=== PATIENT | male | born 1950 | race Asian ===

== ENCOUNTER 2017-12-02 10:48 | Inpatient (IN) | payer OTHER ==
[~2017-12-02] VITALS: Ht 172.7 cm; Wt 62.6 kg
[2017-12-02 10:48] VITALS: BP_SYST 143
[2017-12-02] MEDS ORDERED: NACL 0.9% 1,000 ML IV ONE (10:56)
[2017-12-02] MEDS ORDERED: ASPIRIN 81 MG TAB.CHEW PO ONE (11:00)
[2017-12-02] MEDS ORDERED: NS 1000 ML BAG IV ONE (11:00)
[2017-12-02 11:13] LABS: BILIRUBIN,URINE NEGATIVE (NEGATIVE); CLARITY/URINE CLEAR (CLEAR); COLOR,URINE YELLOW (YELLOW); GLUCOSE,URINE NEGATIVE (NEGATIVE); KETONES,URINE NEGATIVE (NEGATIVE); LEUKOCYTE ESTERASE ,URINE NEGATIVE (NEGATIVE); NITRITE, URINE NEGATIVE (NEGATIVE); PROTEIN URINE TRACE (NEGATIVE); UROBILINOGEN,URINE 0.2 (0.2-1.0)
[2017-12-02 11:46] LABS: BLOOD, URINE TRACE (NEGATIVE)
[2017-12-02 11:50] LABS: BASOPHILS % (AUTO) 0.6 % (0.0-2.0); EOSINOPHILS # (AUTO) 0.2 K/uL (0.0-0.4); EOSINOPHILS % (AUTO) 2.4 % (0.0-4.0); HEMATOCRIT 35.2 % (36-54); HEMOGLOBIN 10.8 g/dL (14.0-18.0); LYMPHOCYTES # (AUTO) 0.9 K/uL (1.0-5.5); LYMPHOCYTES % (AUTO) 13.5 % (20.5-51.5); MEAN CORPUSCULAR HEMOGLOBIN 21 pg (27-31); MEAN CORPUSCULAR HGB CONC 31 % (32-36); MONOCYTES # (AUTO) 0.6 K/uL (0.0-1.0); MONOCYTES % (AUTO) 8.2 % (1.7-9.3); NEUTROPHILS # (AUTO) 5.2 K/uL (1.8-7.7); NEUTROPHILS % (AUTO) 75.3 % (40.0-70.0); PLATELET COUNT (AUTO) 193 K/uL (130-430); RED BLOOD CELL COUNT(AUTO) 5.19 MIL/uL (4.2-6.2); RED CELL DISTRIBUTION WIDTH 18.3 % (9.0-15.0); WHITE BLOOD COUNT (AUTO) 6.9 K/uL (4.8-10.8)
[2017-12-02 11:57] LABS: BARBITURATE, URINE NEGATIVE (NEG <=200); BENZODIAZEPINE, URINE NEGATIVE (NEG <=150); CANNABINOID, URINE NEGATIVE (NEG <=50); COCAINE, URINE NEGATIVE (NEG <=150); METHAMPHETAMINES SCREEN,URINE NEGATIVE (NEG <=500); OPIATE, URINE NEGATIVE (NEG <=100); PHENCYCLIDINE SCREEN,URINE NEGATIVE (NEG <=25); UR TRICYCLIC ANTIDEPRESSANTS NEGATIVE (NEG <=300); URINE AMPHETAMINE NEGATIVE (NEG <=500); URINE METHADONE NEGATIVE (NEG <=200); URINE OXYCODONE SCREEN NEGATIVE (NEG <=100); URINE PROPOXYPHENE SCREEN NEGATIVE (NEG <=300)
[2017-12-02 12:17] LABS: CALCIUM 8.6 mg/dL (8.4-11.0); CREATININE 1.33 mg/dL (0.55-1.30); POTASSIUM 3.7 mmol/L (3.5-5.1)
[2017-12-02 12:18] LABS: PROTHROMBIN TIME 10.6 SECS (9.5-12.5)
[2017-12-02 12:29] LABS: MEAN CORPUSCULAR VOLUME 68 fL (79.0-98.0)
[2017-12-02 12:30] LABS: ALBUMIN 2.9 g/dL (3.4-4.8); TOTAL BILIRUBIN 0.5 mg/dL (0.0-1.0)
[2017-12-02 13:18] LABS: BACTERIA,URINE FEW /HPF (None Seen); RBC,URINE 0-3 /HPF (0-3); WBC,URINE NONE SEEN /HPF (0-3)
[2017-12-02 13:19] LABS: MUCUS,URINE None Seen /LPF (None Seen)
[2017-12-02 15:10] VITALS: BP_SYST 152
[2017-12-02] MEDS ORDERED: ACETAMINOPHEN 325 MG TABLET PO PRN (16:45)
[2017-12-02] MEDS ORDERED: cloNIDine HCL 0.1 MG TABLET PO PRN (16:45)
[2017-12-02 19:15] LABS: TOTAL IRON BIND. CAPACITY 266 ug/dL (250-450)
[2017-12-02 20:11] VITALS: BP_SYST 137
[2017-12-02] MEDS: CARVEDILOL 3.125 MG TABLET (COREG) PO SCH (21:45)
[2017-12-02 23:35] VITALS: BP_SYST 121
[2017-12-03 07:23] LABS: BASOPHILS % (AUTO) 0.6 % (0.0-2.0); EOSINOPHILS # (AUTO) 0.2 K/uL (0.0-0.4); EOSINOPHILS % (AUTO) 4.1 % (0.0-4.0); HEMATOCRIT 34.9 % (36-54); HEMOGLOBIN 10.9 g/dL (14.0-18.0); LYMPHOCYTES # (AUTO) 1.3 K/uL (1.0-5.5); LYMPHOCYTES % (AUTO) 22.7 % (20.5-51.5); MEAN CORPUSCULAR HEMOGLOBIN 22 pg (27-31); MEAN CORPUSCULAR HGB CONC 31 % (32-36); MEAN CORPUSCULAR VOLUME 69 fL (79.0-98.0); MONOCYTES # (AUTO) 0.6 K/uL (0.0-1.0); MONOCYTES % (AUTO) 10.4 % (1.7-9.3); NEUTROPHILS # (AUTO) 3.5 K/uL (1.8-7.7); NEUTROPHILS % (AUTO) 62.2 % (40.0-70.0); PLATELET COUNT (AUTO) 180 K/uL (130-430); RED BLOOD CELL COUNT(AUTO) 5.08 MIL/uL (4.2-6.2); RED CELL DISTRIBUTION WIDTH 18.5 % (9.0-15.0); WHITE BLOOD COUNT (AUTO) 5.6 K/uL (4.8-10.8)
[2017-12-03 07:36] LABS: ALBUMIN 2.9 g/dL (3.4-4.8); CALCIUM 8.6 mg/dL (8.4-11.0); CREATININE 1.44 mg/dL (0.55-1.30); POTASSIUM 3.9 mmol/L (3.5-5.1); TOTAL BILIRUBIN 0.7 mg/dL (0.0-1.0)
[2017-12-03 07:46] VITALS: BP_SYST 145
[2017-12-03] MEDS: ASPIRIN 81 MG TABLET(ECOTRIN) PO SCH (08:39)
[2017-12-03] MEDS: CARVEDILOL 3.125 MG TABLET (COREG) PO SCH ×2 (08:39→21:44)
[2017-12-03] MEDS: FAMOTIDINE 20 MG TABLET PO SCH (08:39)
[2017-12-03 11:47] VITALS: BP_SYST 121
[2017-12-03 12:00] VITALS: BP_SYST 121
[2017-12-03] MEDS ORDERED: LOSARTAN POTASSIUM 25 MG TABLET PO SCH (12:30)
[2017-12-03] MEDS ORDERED: FUROSEMIDE 20 MG TABLET PO ONE (12:30)
[2017-12-03] MEDS: FLUOCINONIDE 0.05% TP SCH ×2 (15:00→21:00)
[2017-12-03] MEDS ORDERED: LORATADINE 10 MG TABLET PO ONE (15:00)
[2017-12-03 16:00] VITALS: BP_SYST 124
[2017-12-03] MEDS: TEARS ARTIFICIAL 15 ML DROPS OP SCH ×3 (16:00→21:45)
[2017-12-03] MEDS: HYDROCORTISONE 1% 28.35 GM TOPICAL OINT. TP SCH ×2 (16:00→21:46)
[2017-12-03] MEDS: CEPHALEXIN 500 MG CAPSULE PO SCH (17:45)
[2017-12-03 20:30] VITALS: BP_SYST 135
[2017-12-03] MEDS: ERYTHROMYCIN BASE 0.5% EYE OINT...G. OP SCH (21:45)
[2017-12-04] MEDS: CEPHALEXIN 500 MG CAPSULE PO SCH ×5 (01:04→23:52)
[2017-12-04 01:31] VITALS: BP_SYST 127
[2017-12-04 07:18] LABS: BASOPHILS % (AUTO) 0.6 % (0.0-2.0); EOSINOPHILS # (AUTO) 0.3 K/uL (0.0-0.4); EOSINOPHILS % (AUTO) 4.4 % (0.0-4.0); HEMATOCRIT 37.7 % (36-54); HEMOGLOBIN 11.6 g/dL (14.0-18.0); LYMPHOCYTES # (AUTO) 1.5 K/uL (1.0-5.5); LYMPHOCYTES % (AUTO) 19.6 % (20.5-51.5); MEAN CORPUSCULAR HEMOGLOBIN 21 pg (27-31); MEAN CORPUSCULAR HGB CONC 31 % (32-36); MEAN CORPUSCULAR VOLUME 69 fL (79.0-98.0); MONOCYTES # (AUTO) 0.8 K/uL (0.0-1.0); MONOCYTES % (AUTO) 10.1 % (1.7-9.3); NEUTROPHILS # (AUTO) 4.9 K/uL (1.8-7.7); NEUTROPHILS % (AUTO) 65.3 % (40.0-70.0); PLATELET COUNT (AUTO) 207 K/uL (130-430); RED BLOOD CELL COUNT(AUTO) 5.44 MIL/uL (4.2-6.2); RED CELL DISTRIBUTION WIDTH 19.2 % (9.0-15.0); WHITE BLOOD COUNT (AUTO) 7.5 K/uL (4.8-10.8)
[2017-12-04 07:54] LABS: ALBUMIN 2.8 g/dL (3.4-4.8); CALCIUM 8.6 mg/dL (8.4-11.0); CREATININE 1.61 mg/dL (0.55-1.30); POTASSIUM 4.1 mmol/L (3.5-5.1); THYROID STIMULATING HORMONE 3.32 uIu/mL (0.34-4.82); TOTAL BILIRUBIN 0.7 mg/dL (0.0-1.0)
[2017-12-04 08:00] VITALS: BP_SYST 151
[2017-12-04] MEDS ORDERED: VANCOMYCIN HCL 1 GM/NS PREMIX 250 ML IV ONE (08:00)
[2017-12-04] MEDS: CARVEDILOL 3.125 MG TABLET (COREG) PO SCH (08:41)
[2017-12-04] MEDS: LOSARTAN POTASSIUM 25 MG TABLET PO SCH (08:42)
[2017-12-04] MEDS: ASPIRIN 81 MG TABLET(ECOTRIN) PO SCH (08:42)
[2017-12-04] MEDS: LORATADINE 10 MG TABLET PO SCH (08:42)
[2017-12-04] MEDS: FAMOTIDINE 20 MG TABLET PO SCH (08:42)
[2017-12-04] MEDS: HYDROCORTISONE 1% 28.35 GM TOPICAL OINT. TP SCH ×2 (08:43→21:32)
[2017-12-04] MEDS: ERYTHROMYCIN BASE 0.5% EYE OINT...G. OP SCH ×2 (08:43→21:31)
[2017-12-04] MEDS: TEARS ARTIFICIAL 15 ML DROPS OP SCH ×4 (08:43→21:31)
[2017-12-04] MEDS: FUROSEMIDE 20 MG TABLET PO SCH (08:43)
[2017-12-04] MEDS: FLUOCINONIDE 0.05% TP SCH ×2 (09:00→21:00)
[2017-12-04] MEDS ORDERED: LORazepam 2 MG/ML VIAL IVP PRN (11:30)
[2017-12-04] MEDS ORDERED: PERMETHRIN 60 GM TOPICAL CREAM (ELIMITE) TP ONE (11:45)
[2017-12-04 12:36] VITALS: BP_SYST 117
[2017-12-04] MEDS ORDERED: IVERMECTIN 3 MG TABLET PO ONE (14:30)
[2017-12-04 17:03] VITALS: BP_SYST 124
[2017-12-04 20:12] VITALS: BP_SYST 126
[2017-12-04] MEDS: CARVEDILOL 6.25 MG TABLET (COREG) PO SCH (21:30)
[2017-12-05] VITALS: BP_SYST 121
[2017-12-05] MEDS: VANCOMYCIN HCL 1,000 MG in NS 250 ML IV SCH (05:39)
[2017-12-05] MEDS: CEPHALEXIN 500 MG CAPSULE PO SCH ×3 (05:39→17:25)
[2017-12-05 06:49] LABS: BASOPHILS % (AUTO) 0.5 % (0.0-2.0); EOSINOPHILS # (AUTO) 0.4 K/uL (0.0-0.4); EOSINOPHILS % (AUTO) 5.6 % (0.0-4.0); HEMATOCRIT 36.8 % (36-54); HEMOGLOBIN 11.6 g/dL (14.0-18.0); LYMPHOCYTES # (AUTO) 1.1 K/uL (1.0-5.5); LYMPHOCYTES % (AUTO) 17.8 % (20.5-51.5); MEAN CORPUSCULAR HEMOGLOBIN 22 pg (27-31); MEAN CORPUSCULAR HGB CONC 32 % (32-36); MEAN CORPUSCULAR VOLUME 69 fL (79.0-98.0); MONOCYTES # (AUTO) 0.6 K/uL (0.0-1.0); MONOCYTES % (AUTO) 9.8 % (1.7-9.3); NEUTROPHILS # (AUTO) 4.2 K/uL (1.8-7.7); NEUTROPHILS % (AUTO) 66.3 % (40.0-70.0); RED BLOOD CELL COUNT(AUTO) 5.36 MIL/uL (4.2-6.2); RED CELL DISTRIBUTION WIDTH 18.7 % (9.0-15.0); WHITE BLOOD COUNT (AUTO) 6.3 K/uL (4.8-10.8)
[2017-12-05 07:11] LABS: CALCIUM 8.6 mg/dL (8.4-11.0); POTASSIUM 3.9 mmol/L (3.5-5.1)
[2017-12-05 07:12] LABS: CREATININE 1.49 mg/dL (0.55-1.30)
[2017-12-05 08:18] LABS: FOLATE (FOLIC ACID) 17.7 ng/mL (>3.0)
[2017-12-05] MEDS: FLUOCINONIDE 0.05% TP SCH (09:00)
[2017-12-05] MEDS: ASPIRIN 81 MG TABLET(ECOTRIN) PO SCH (09:35)
[2017-12-05] MEDS: FAMOTIDINE 20 MG TABLET PO SCH (09:35)
[2017-12-05] MEDS: FUROSEMIDE 20 MG TABLET PO SCH (09:35)
[2017-12-05] MEDS: CARVEDILOL 6.25 MG TABLET (COREG) PO SCH ×2 (09:36→20:52)
[2017-12-05] MEDS: LORATADINE 10 MG TABLET PO SCH (09:36)
[2017-12-05] MEDS: LOSARTAN POTASSIUM 25 MG TABLET PO SCH (09:36)
[2017-12-05] MEDS: ERYTHROMYCIN BASE 0.5% EYE OINT...G. OP SCH ×2 (09:41→20:52)
[2017-12-05] MEDS: TEARS ARTIFICIAL 15 ML DROPS OP SCH ×4 (09:41→20:52)
[2017-12-05] MEDS: HYDROCORTISONE 1% 28.35 GM TOPICAL OINT. TP SCH ×2 (09:41→20:52)
[2017-12-05 09:44] LABS: PLATELET COUNT (AUTO) 185 K/uL (130-430)
[2017-12-05 10:01] VITALS: BP_SYST 100
[2017-12-05 12:00] VITALS: BP_SYST 128
[2017-12-05 16:03] VITALS: BP_SYST 123
[2017-12-05] MEDS: FLUOCINONIDE 0.05% TOPICAL CREAM 15 GM (LIDEX) TP SCH (20:52)
[2017-12-06 01:32] VITALS: BP_SYST 135
[2017-12-06] MEDS: CEPHALEXIN 500 MG CAPSULE PO SCH ×4 (05:57→17:23)
[2017-12-06] MEDS: VANCOMYCIN HCL 1,000 MG in NS 250 ML IV SCH (05:57)
[2017-12-06 08:00] VITALS: BP_SYST 155
[2017-12-06] MEDS: ERYTHROMYCIN BASE 0.5% EYE OINT...G. OP SCH ×2 (09:00→21:20)
[2017-12-06] MEDS: HYDROCORTISONE 1% 28.35 GM TOPICAL OINT. TP SCH ×2 (09:00→21:23)
[2017-12-06] MEDS: TEARS ARTIFICIAL 15 ML DROPS OP SCH ×4 (09:00→21:20)
[2017-12-06] MEDS: FLUOCINONIDE 0.05% TOPICAL CREAM 15 GM (LIDEX) TP SCH ×2 (09:00→21:24)
[2017-12-06] MEDS: ASPIRIN 81 MG TABLET(ECOTRIN) PO SCH (09:33)
[2017-12-06] MEDS: FAMOTIDINE 20 MG TABLET PO SCH (09:33)
[2017-12-06] MEDS: CARVEDILOL 6.25 MG TABLET (COREG) PO SCH ×2 (09:33→21:15)
[2017-12-06] MEDS: FUROSEMIDE 20 MG TABLET PO SCH (09:33)
[2017-12-06] MEDS: LORATADINE 10 MG TABLET PO SCH (09:34)
[2017-12-06] MEDS: LOSARTAN POTASSIUM 25 MG TABLET PO SCH (09:34)
[2017-12-06 12:55] VITALS: BP_SYST 115
[2017-12-06 20:50] VITALS: BP_SYST 108
[2017-12-07] MEDS: CEPHALEXIN 500 MG CAPSULE PO SCH ×2 (00:18→05:22)
[2017-12-07 02:56] VITALS: BP_SYST 118
[2017-12-07] MEDS: VANCOMYCIN HCL 1,000 MG in NS 250 ML IV SCH (05:23)
[2017-12-07 08:00] VITALS: BP_SYST 112
[2017-12-07] MEDS: FLUOCINONIDE 0.05% TOPICAL CREAM 15 GM (LIDEX) TP SCH ×2 (09:00→21:00)
[2017-12-07] MEDS: TEARS ARTIFICIAL 15 ML DROPS OP SCH ×4 (09:00→21:00)
[2017-12-07] MEDS: ERYTHROMYCIN BASE 0.5% EYE OINT...G. OP SCH ×2 (09:00→21:00)
[2017-12-07] MEDS: HYDROCORTISONE 1% 28.35 GM TOPICAL OINT. TP SCH ×2 (09:00→21:00)
[2017-12-07] MEDS: FAMOTIDINE 20 MG TABLET PO SCH (09:17)
[2017-12-07] MEDS: LOSARTAN POTASSIUM 25 MG TABLET PO SCH (09:17)
[2017-12-07] MEDS: ASPIRIN 81 MG TABLET(ECOTRIN) PO SCH (09:17)
[2017-12-07] MEDS: FUROSEMIDE 20 MG TABLET PO SCH (09:17)
[2017-12-07] MEDS: LORATADINE 10 MG TABLET PO SCH (09:17)
[2017-12-07] MEDS: CARVEDILOL 6.25 MG TABLET (COREG) PO SCH ×2 (09:24→21:00)
[2017-12-07] MEDS ORDERED: FLUCONAZOLE 100 MG TABLET (DIFLUCAN) PO ONE (10:15)
[2017-12-07 12:00] VITALS: BP_SYST 117
[2017-12-07 20:00] VITALS: BP_SYST 95
[2017-12-08] VITALS: BP_SYST 100
[2017-12-08] MEDS: FLUCONAZOLE 100 MG TABLET (DIFLUCAN) PO SCH (08:51)
[2017-12-08] MEDS: ASPIRIN 81 MG TABLET(ECOTRIN) PO SCH (08:51)
[2017-12-08] MEDS: FAMOTIDINE 20 MG TABLET PO SCH (08:51)
[2017-12-08] MEDS: LORATADINE 10 MG TABLET PO SCH (08:51)
[2017-12-08] MEDS: CARVEDILOL 6.25 MG TABLET (COREG) PO SCH ×2 (09:00→20:15)
[2017-12-08] MEDS: FLUOCINONIDE 0.05% TOPICAL CREAM 15 GM (LIDEX) TP SCH ×2 (09:00→20:15)
[2017-12-08] MEDS: TEARS ARTIFICIAL 15 ML DROPS OP SCH ×4 (09:00→20:12)
[2017-12-08] MEDS: HYDROCORTISONE 1% 28.35 GM TOPICAL OINT. TP SCH ×2 (09:00→20:16)
[2017-12-08] MEDS: LOSARTAN POTASSIUM 25 MG TABLET PO SCH (09:00)
[2017-12-08] MEDS: FUROSEMIDE 20 MG TABLET PO SCH (09:00)
[2017-12-08] MEDS: ERYTHROMYCIN BASE 0.5% EYE OINT...G. OP SCH ×2 (09:00→20:14)
[2017-12-08 12:08] VITALS: BP_SYST 98
[2017-12-08 16:25] VITALS: BP_SYST 105
[2017-12-08 20:00] VITALS: BP_SYST 123
[2017-12-09 07:44] VITALS: BP_SYST 112
[2017-12-09] MEDS: FAMOTIDINE 20 MG TABLET PO SCH (08:40)
[2017-12-09] MEDS: ASPIRIN 81 MG TABLET(ECOTRIN) PO SCH (08:40)
[2017-12-09] MEDS: LOSARTAN POTASSIUM 25 MG TABLET PO SCH (08:41)
[2017-12-09] MEDS: LORATADINE 10 MG TABLET PO SCH (08:41)
[2017-12-09] MEDS: FUROSEMIDE 20 MG TABLET PO SCH (08:41)
[2017-12-09] MEDS: CARVEDILOL 6.25 MG TABLET (COREG) PO SCH ×2 (08:42→21:00)
[2017-12-09] MEDS: TEARS ARTIFICIAL 15 ML DROPS OP SCH ×4 (08:42→21:33)
[2017-12-09] MEDS: FLUOCINONIDE 0.05% TOPICAL CREAM 15 GM (LIDEX) TP SCH ×2 (08:43→21:34)
[2017-12-09] MEDS: ERYTHROMYCIN BASE 0.5% EYE OINT...G. OP SCH ×2 (08:43→21:35)
[2017-12-09] MEDS: HYDROCORTISONE 1% 28.35 GM TOPICAL OINT. TP SCH ×2 (08:44→21:34)
[2017-12-09] MEDS: FLUCONAZOLE 100 MG TABLET (DIFLUCAN) PO SCH (08:50)
[2017-12-09 12:31] VITALS: BP_SYST 96
[2017-12-09 15:41] VITALS: BP_SYST 100
[2017-12-09 20:00] VITALS: BP_SYST 105
[2017-12-09] MEDS: risperiDONE 1 MG TABLET (RisperDAL) PO SCH (21:35)
[2017-12-10] VITALS: BP_SYST 83
[2017-12-10 07:50] VITALS: BP_SYST 108
[2017-12-10] MEDS: LOSARTAN POTASSIUM 25 MG TABLET PO SCH (09:00)
[2017-12-10] MEDS: CARVEDILOL 6.25 MG TABLET (COREG) PO SCH (09:00)
[2017-12-10] MEDS: ERYTHROMYCIN BASE 0.5% EYE OINT...G. OP SCH ×2 (09:03→21:00)
[2017-12-10] MEDS: TEARS ARTIFICIAL 15 ML DROPS OP SCH ×4 (09:03→21:00)
[2017-12-10] MEDS: FAMOTIDINE 20 MG TABLET PO SCH (09:05)
[2017-12-10] MEDS: risperiDONE 1 MG TABLET (RisperDAL) PO SCH ×2 (09:05→21:00)
[2017-12-10] MEDS: ASPIRIN 81 MG TABLET(ECOTRIN) PO SCH (09:05)
[2017-12-10] MEDS: FLUCONAZOLE 100 MG TABLET (DIFLUCAN) PO SCH (09:06)
[2017-12-10] MEDS: FUROSEMIDE 20 MG TABLET PO SCH (09:06)
[2017-12-10] MEDS: LORATADINE 10 MG TABLET PO SCH (09:06)
[2017-12-10] MEDS: FLUOCINONIDE 0.05% TOPICAL CREAM 15 GM (LIDEX) TP SCH ×2 (09:09→21:00)
[2017-12-10] MEDS: HYDROCORTISONE 1% 28.35 GM TOPICAL OINT. TP SCH ×2 (09:09→21:00)
[2017-12-10 13:00] VITALS: BP_SYST 93
[2017-12-10 16:08] VITALS: BP_SYST 94
[2017-12-10 20:00] VITALS: BP_SYST 92
[2017-12-10] MEDS: CARVEDILOL 3.125 MG TABLET (COREG) PO SCH (21:00)
[2017-12-11] VITALS: BP_SYST 114
[2017-12-11 07:55] LABS: CALCIUM 9.1 mg/dL (8.4-11.0); CREATININE 1.78 mg/dL (0.55-1.30); POTASSIUM 4.3 mmol/L (3.5-5.1)
[2017-12-11 07:58] VITALS: BP_SYST 114
[2017-12-11] MEDS: CARVEDILOL 3.125 MG TABLET (COREG) PO SCH (08:55)
[2017-12-11] MEDS: ASPIRIN 81 MG TABLET(ECOTRIN) PO SCH (08:55)
[2017-12-11] MEDS: FAMOTIDINE 20 MG TABLET PO SCH (08:55)
[2017-12-11] MEDS: FLUCONAZOLE 100 MG TABLET (DIFLUCAN) PO SCH (08:56)
[2017-12-11] MEDS: LOSARTAN POTASSIUM 25 MG TABLET PO SCH (08:56)
[2017-12-11] MEDS: FUROSEMIDE 20 MG TABLET PO SCH (08:56)
[2017-12-11] MEDS: LORATADINE 10 MG TABLET PO SCH (08:56)
[2017-12-11] MEDS: HYDROCORTISONE 1% 28.35 GM TOPICAL OINT. TP SCH (08:57)
[2017-12-11] MEDS: FLUOCINONIDE 0.05% TOPICAL CREAM 15 GM (LIDEX) TP SCH (08:57)
[2017-12-11] MEDS: risperiDONE 1 MG TABLET (RisperDAL) PO SCH (08:57)
[2017-12-11] MEDS: TEARS ARTIFICIAL 15 ML DROPS OP SCH ×3 (08:58→16:55)
[2017-12-11] MEDS: ERYTHROMYCIN BASE 0.5% EYE OINT...G. OP SCH ×2 (08:58→09:00)
[2017-12-11 12:30] VITALS: BP_SYST 114
[2017-12-11 16:30] VITALS: BP_SYST 107
[2017-12-11 17:00] VITALS: BP_SYST 107
== END 2017-12-11 18:40 | DRG 291 ==
LOC: EDBD 10:48 → SED 10:48 → STU 14:33 → SMU 12-05 23:22
PROVIDERS: ADMIT Internal Medicine; ATTEND Internal Medicine
DX: I13.0 Hypertensive heart and chronic kidney disease with heart failure and stage 1 through stage 4 chronic kidney disease, or unspecified chronic kidney disease (principal); N17.0 Acute kidney failure with tubular necrosis; E44.0 Moderate protein-calorie malnutrition; I42.0 Dilated cardiomyopathy; I48.2 Chronic atrial fibrillation; D50.9 Iron deficiency anemia, unspecified; H01.003 Unspecified blepharitis right eye, unspecified eyelid; H01.006 Unspecified blepharitis left eye, unspecified eyelid; I50.31 Acute diastolic (congestive) heart failure; L03.211 Cellulitis of face; N18.4 Chronic kidney disease, stage 4 (severe); I50.9 Heart failure, unspecified; R73.9 Hyperglycemia, unspecified; R94.5 Abnormal results of liver function studies; L29.8 Other pruritus; L28.0 Lichen simplex chronicus; L20.89 Other atopic dermatitis; Z59.0 Homelessness; Z79.899 Other long term (current) drug therapy; Z68.21 Body mass index [BMI] 21.0-21.9, adult
CPT/HCPCS: 36415; 70486-TC; 71045; 80048; 80053; 80061; 80307; 81000-TC; 82272; 82550-TC; 82607; 82728; 82746; 83540-TC; 83550-TC; 83605; 83690-TC; 83735-TC; 83880; 84443-TC; 84484; 85025; 85379; 85610-TC; 85730-TC; 87040-TC; 87081; 87210-TC; 93005; 93306; 96360; 96361; 97110-GP; 97116-GP; 97530-GP; 99285; J3370; J7030; J7050